=== PATIENT | male | born 1995 | race Hispanic/Latino ===

== ENCOUNTER 2020-11-17 01:33 | Emergency (ER) | payer BC, OTHER ==
[~2020-11-17] VITALS: Ht 177.8 cm; Wt 104.3 kg
[~2020-11-17 01:33] MED LIST: Z.0.ATENOLOL25 MG PO
== END 2020-11-17 01:55 | disposition home or self-care (01) ==
LOC: ER 01:37
DX: L25.9 Unspecified contact dermatitis, unspecified cause (principal); L73.9 Follicular disorder, unspecified
CPT/HCPCS: 99282